=== PATIENT | female | born 1965 | race Caucasian/White ===

== ENCOUNTER → 2025-06-11 13:48 | Outpatient (CLI) | payer OTHER, SELFPAY ==
[2025-06-11 14:23] LABS: Hematocrit 36.2 % (36-46); Hemoglobin 12.4 g/dL (12.0-16.0); Mean Corpuscular HGB Conc 34.1 % (30-36); Mean Corpuscular Hemoglobin 29.1 PG (26-34); Mean Corpuscular Volume 85.3 fL (80-100); Platelet Count 253 X10^3/uL (150-400)
[2025-06-11 14:57] LABS: Alanine Aminotransferase 31 IU/L (<35); Albumin 4.7 g/dL (3.5-5.0); Albumin Globulin Ratio 2.1 (1.0-2.8); Alkaline Phosphatase 75 U/L (38-126); Blood Urea Nitrogen 11 mg/dL (7-17); Calcium 9.2 mg/dL (8.4-10.2); Carbon Dioxide 24 mmol/L (22-32); Chloride 103 mmol/L (98-107); Cholesterol 169 mg/dL (140-199); Estimated Glomerular Filt Rate > 60 mL/min (>60); Globulin 2.2 g/dL (1.7-4.1); Glucose 126 mg/dL (70-99); HDL Cholesterol 59 mg/dL (40-60); HEMOLYSIS < 15 (0-50); Potassium 4.8 mmol/L (3.4-5.1); Sodium 137 mmol/L (137-145); Total Protein 6.9 g/dL (6.3-8.2); Triglycerides 144 mg/dL (35-150)
[2025-06-11 15:48] LABS: Microalbumi Creatinin Ratio Ur 15.0 ug/mg CR (<30)
[2025-06-11 16:24] LABS: HIV 1 & 2 Ab/Ag 4th Gen Combo NEGATIVE (NEGATIVE); Hep C Virus Ab w/Reflex Quant NEGATIVE s/c (NEGATIVE)
== END ==
PROVIDERS: PCP Family Medicine; Referring Provider Family Medicine; Visit Provider Family Medicine
DX: E11.9 Type 2 diabetes mellitus without complications (principal); Z13.9 Encounter for screening, unspecified
CPT/HCPCS: 36415; 80053; 80061; 82043; 82570; 85027; 86803; 87389

== ENCOUNTER → 2025-06-20 10:48 | Outpatient (CLI) | payer OTHER, SELFPAY | PROVIDERS: PCP Family Medicine; Visit Provider Family Medicine | DX: R35.0 Frequency of micturition (principal) | CPT/HCPCS: 87086 ==

== ENCOUNTER 2025-08-09 06:46 | Day surgery (SDC) | payer OTHER, SELFPAY ==
[2025-08-09 07:11] VITALS: BP 149/74; PULSE 74; RESP 16; TEMP 36.2; O2SAT 98
[2025-08-09] MEDS: LACTATED RINGERS 1,000 ML 42 ML IV (07:19)
--- NOTE | 2025-08-09 07:58 | PM.HP.IH.1 ---
History of Present Illness History of Present Illness Date Patient Seen: 08/09/25 Time Patient Seen: 07:58 Chief complaint: Screening Colonoscopy Narrative: Jerrica is a 60 year here for her first screening colonoscopy. She has no family history of colon. [facility]LY [facility] Social History Smoking Status: Never smoker Meds Home Medications and Allergies Home Medications ?Medication ?Instructions ?Recorded ?Confirmed ?Type atenolol 25 mg tablet 25 mg PO 04/30/25 04/30/25 History atorvastatin 40 mg tablet 40 mg PO DAILY #90 tabs 04/30/25 08/09/25 Rx bupropion HCl 150 mg tablet,12 hr 150 mg PO DAILY 04/30/25 08/09/25 History sustained-release (Wellbutrin SR) dextroamphetamine-amphetamine 10 1 - 2 tab PO DAILY PRN adhd 04/30/25 08/09/25 History mg tablet dextroamphetamine-amphetamine ER 1 cap PO QAM 04/30/25 08/09/25 History 25 mg 24hr capsule,extend release dulaglutide 4.5 mg/0.5 mL 4.5 mg (0.5 mL) SUBCUT QWEEK #2 mL 04/30/25 08/09/25 Rx subcutaneous pen injector glipizide 5 mg tablet, extended 5 mg PO DAILY #90 tabs 04/30/25 08/09/25 Rx release 24 hr lamotrigine 150 mg tablet 150 mg PO DAILY 04/30/25 08/09/25 History lamotrigine 200 mg tablet 100 mg PO 04/30/25 04/30/25 History meclizine 25 mg tablet 25 mg PO DAILY PRN dizziness 04/30/25 08/09/25 History nystatin 100,000 unit/gram topical 1 applic topical BID #60 grams 04/30/25 08/09/25 Rx powder trazodone 100 mg tablet 50 mg PO ONCE PM PRN sleep 04/30/25 08/09/25 History blood-glucose sensor (Dexcom G7 #3 ea 06/03/25 Rx Sensor device) blood-glucose,raw hide trimmer,cont #1 ea 06/03/25 Rx (Dexcom G7 Pacs Specialist) omeprazole 20 mg capsule,delayed 20 mg PO DAILY #30 caps 06/04/25 08/09/25 Rx release Continuous blood glucose raw hide trimmer #1 ea 06/20/25 06/20/25 Rx continues glucose sensor device #9 ea 06/20/25 06/20/25 Rx peg 3350-electrolytes 236 240 ml PO Q10M #4,000 mL 07/05/25 08/09/25 Rx gram-22.74 gram-6.74 gram-5.86 gram solution (Golytely) Allergies Allergy/AdvReac Type Severity Reaction Status Date / Time simvastatin AdvReac Mild leg cramps Verified 08/09/25 07:35 Exam Vital Signs (past 8 hours): - 08/09/25 07:11 Temperature 97.2 F L Pulse Rate 74 Respiratory Rate 16 Blood Pressure 149/74 H Pulse Oximetry 98 Oxygen Delivery Method Room Air Oxygen Delivery Method Room Air Const General: No acute distress Objective Labs Labs: Laboratory Results - last 24 hr 08/09/25 07:16 POC Whole Bld Glucose 132 H Assessment & Plan Assessment and plan (1) Colon cancer screening: Status: Acute Plan Colonoscopy Time-Based Coding :: [TOTAL MINUTES] spent with patient and on the chart (including review of chart, obtaining history, exam, reviewing outside data, placing orders, documenting exam and treatment plan, and counseling patient) on [DATE]. 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
--- NOTE | 2025-08-09 08:25 | SUR.OPER ---
CECUM AT 0822
[2025-08-09 08:35] VITALS: BP 95/62; PULSE 68; RESP 14; TEMP 36.1; O2SAT 96
--- NOTE | 2025-08-09 08:38 | P.OP.COLON_ITS ---
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 The patient was connected to monitoring devices. A time-out was performed. Sedation was administered. Once the patient was adequately sedated, a digital rectal exam was performed and was normal. The scope was then inserted and advanced to the cecum where the appendiceal orifice was identified and photographed. The scope was then slowly withdrawn over greater than 6 minutes. The mucosa was thoroughly inspected. No polyps or other abnormalities were identified. The scope was retroflexed in the rectum. The scope was straightened and removed. The patient was awakened and brought to recovery. Scope withdrawal time: 8 minutes Sedation time: 14 minutes Findings: Normal colon Estimated Blood Loss: 0 Complications: none Post-procedure Disposition: PACU
[2025-08-09 08:43] VITALS: BP 106/68; PULSE 68; RESP 17; O2SAT 99
[2025-08-09 08:47] VITALS: BP 130/65; PULSE 69; RESP 20; TEMP 36.1; O2SAT 99
[2025-08-09 08:52] VITALS: BP 118/67; PULSE 70; RESP 11; TEMP 36.1; O2SAT 100
== END 2025-08-09 09:05 | disposition home or self-care (01) ==
PROVIDERS: PCP Family Medicine; Referring Provider Surgery; Visit Provider Surgery
PROC: 0DJD8ZZ Inspection of Lower Intestinal Tract, Via Natural or Artificial Opening Endoscopic (ICD-10-PCS; CPT 45378; principal; 2025-08-09 08:15)
DX: Z12.11 Encounter for screening for malignant neoplasm of colon (principal); K21.9 Gastro-esophageal reflux disease without esophagitis; E11.9 Type 2 diabetes mellitus without complications; Z79.84 Long term (current) use of oral hypoglycemic drugs; E66.9 Obesity, unspecified; Z68.30 Body mass index [BMI] 30.0-30.9, adult
CPT/HCPCS: G0121; 82962; J2704; J7120

== ENCOUNTER → 2025-09-02 15:50 | Outpatient (CLI) | payer OTHER, SELFPAY ==
--- NOTE | 2025-09-02 15:51 | DI.MG.S_ITS ---
MM screening mammo BI: 09/02/2025. BI-RADS: 1 CLINICAL: 60-year old female for bilateral screening mammogram. Tyrer-Cuzick lifetime risk of 4.0%. No personal or first-degree family history of breast cancer. PRIOR EXAMS: 02/05/2022. MAMMOGRAPHY TECHNIQUE: 2D and 3D (tomosynthesis) digital mammographic views obtained, with additional images as needed for full coverage. Current study was also evaluated with a Computer Aided Detection (CAD) system. DENSITY B. There are scattered areas of fibroglandular density. MAMMOGRAPHY FINDINGS Bilateral: No suspicious mass, asymmetry, microcalcification, or other abnormality seen. IMPRESSION: * No evidence of malignancy. RECOMMENDATIONS Bilateral * Annual screening mammography. OVERALL ASSESSMENT CATEGORY BI-RADS-1: Negative. The [employer] recommends annual screening mammography beginning at age 40 for women with average risk of breast cancer. ELECTRONICALLY SIGNED: Kendrick Garland M.D. on 09/03/2025 at 12:10:14 PM PT Interpreting Station ID: [id number]
== END ==
LOC: MAMMO 15:50
PROVIDERS: PCP Family Medicine; Referring Provider Family Medicine; Visit Provider Family Medicine
DX: Z12.31 Encounter for screening mammogram for malignant neoplasm of breast (principal)
CPT/HCPCS: 77063; 77067

== ENCOUNTER → 2025-09-10 09:51 | Outpatient (CLI) | payer OTHER, SELFPAY ==
--- NOTE | 2025-09-10 09:53 | DI.RAD.S_ITS ---
PROCEDURE: XR SHOULDER RT MIN 2V INDICATIONS: shoulder pain TECHNIQUE: Three views of the shoulder were acquired. COMPARISON: None. FINDINGS: Bones: Moderate degenerative changes of the acromioclavicular joint. The glenohumeral joint is unremarkable. No acute fracture or dislocation. Soft tissues: No suspicious soft tissue calcifications. IMPRESSION: No acute bony abnormality. Dictated by: Belgica Borden M.D. on 09/10/2025 at 12:35 Approved by: Belgica Borden M.D. on 09/10/2025 at 12:38
== END ==
PROVIDERS: PCP Family Medicine; Referring Provider Family Medicine; Visit Provider Family Medicine
DX: M25.511 Pain in right shoulder (principal); G89.29 Other chronic pain
CPT/HCPCS: 73030